=== PATIENT | female | born 1965 | race Two or more races ===

== ENCOUNTER 2023-04-14 09:59 | Outpatient (CLI) | payer OTHER | END 2023-04-14 10:22 | disposition home or self-care (01) | LOC: SONOGRAMA 09:59 | DX: M65.4 Radial styloid tenosynovitis [de Quervain] (principal) ==

== ENCOUNTER 2024-10-09 11:18 | Emergency (ER) | payer OTHER ==
[~2024-10-09] VITALS: Ht 154.9 cm; Wt 109.8 kg
[2024-10-09] MEDS ORDERED: METFORMIN HCL500 M4 PO (11:51)
[2024-10-09] MEDS ORDERED: LOSARTAN POTASS25 MG PO (11:51)
[2024-10-09] MEDS ORDERED: MEPERIDINE HCL/PF 50 MG/ML VIAL IM ONE (12:00)
[2024-10-09 12:54] LABS: HEMATOCRIT 38.1 % (36.0-45.00); HEMOGLOBIN 12.6 g/dL (12.0-15.00); MEAN CELL VOLUME 79.9 fL (80.00-100.00); MEAN CORPUSCULAR HEMOGLOBIN 26.5 pg (27.00-32.0); MEAN CORPUSCULAR HGB CONC 33.1 g/dl (32.0-36.0); PLATELET COUNT 357 K/uL (150-450); RED BLOOD COUNT 4.76 M/uL (4.00-6.00)
[2024-10-09 13:10] LABS: INR 1.06; PARTIAL THROMBOPLASTIN TIME 26.4 SECONDS (22.0-34.0); PROTHROMBIN TIME 11.5 SECONDS (9.0-11.5)
[2024-10-09 13:18] LABS: ALBUMIN 2.8 gm/dL (3.4-5.0); BILIRUBIN TOTAL 0.54 mg/dL (0.3-1.2); CALCIUM 9.3 mg/dL (8.5-10.1); CREATININE SERUM 1.01 mg/dL (0.55-1.02); GFR 56.3; GLOBULINA 4.4 G/DL (2.4-3.5); POTASSIUM 3.28 mEq/L (3.5-5.1); TOTAL PROTEIN 7.2 gm/dL (6.4-8.2)
[2024-10-09 14:07] LABS: PH,URINE 5.5 (5.0-8.0); URINE APPEARANCE Cloudy; URINE BILIRRUBIN Negative (NEGATIVE); URINE BLOOD Small; URINE COLOR Yellow; URINE KETONE Trace (NEGATIVE); URINE LEUKOCYTE Negative; URINE NITRATE Positive
[2024-10-09 14:11] LABS: URINE CAST 2.06 uL (0.0-1.40); URINE RBC 3.5 uL (0.0-20.8); URINE WBC 60.6 uL (0.0-23.2)
[2024-10-09 15:40] LABS: URINE GLUCOSE 100 MG/DL (NEGATIVE)
[2024-10-09 15:41] LABS: URINE BACTERIA > 9821.5 uL (0.0-1933); URINE EPITHELIAL CELLS > 201.7 uL (0.0-38.8); URINE PROTEIN 300 (NEGATIVE)
[2024-10-09] MEDS ORDERED: PEPCID AC20 MG PO (15:44)
[2024-10-09] MEDS ORDERED: BACTRIM DS TAB1 EACH PO (15:44)
[2024-10-09] MEDS ORDERED: NEURONTIN300 MG PO (15:44)
[2024-10-09] MEDS ORDERED: TAMS0.4C PO (15:44)
== END 2024-10-09 16:14 | disposition home or self-care (01) ==
LOC: ER 11:20
PROVIDERS: General Practice
DX: R10.2 Pelvic and perineal pain (principal); I10 Essential (primary) hypertension; E11.9 Type 2 diabetes mellitus without complications; Z79.84 Long term (current) use of oral hypoglycemic drugs

== ENCOUNTER 2024-10-14 15:43 | Inpatient (IN) | payer OTHER ==
[~2024-10-14] VITALS: Ht 152.4 cm; Wt 109.8 kg
[~2024-10-14 15:43] MED LIST: BACTRIM DS TAB1 EACH PO; LOSARTAN POTASS25 MG PO; METFORMIN HCL500 M4 PO; NEURONTIN300 MG PO; PEPCID AC20 MG PO; TAMS0.4C PO
[2024-10-14] MEDS ORDERED: SODIUM CHLORIDE 0.45 % 1,000 ML IV SCH (16:45)
[2024-10-14] MEDS ORDERED: LABETALOL HCL 200 MG/40 ML VIAL IV ONE (16:45)
[2024-10-14] MEDS ORDERED: METHYLPREDNISOLONE SOD SUCC 125 MG VIAL IV ONE (16:45)
[2024-10-14] MEDS ORDERED: LEVALBUTEROL HCL 1.25 MG/3 ML SOLUTION IH SCH (17:00)
[2024-10-14] MEDS ORDERED: LABETALOL HCL 100 MG/20 ML ML ONE (17:24)
[2024-10-14] MEDS ORDERED: METHYLPREDNISOLONE SOD SUCC 125 MG VIAL ONE (17:25)
[2024-10-14 17:57] LABS: HEMATOCRIT 40.8 % (36.0-45.00); HEMOGLOBIN 13.8 g/dL (12.0-15.00); MEAN CELL VOLUME 79.6 fL (80.00-100.00); MEAN CORPUSCULAR HGB CONC 33.9 g/dl (32.0-36.0); PLATELET COUNT 373 K/uL (150-450); RED BLOOD COUNT 5.12 M/uL (4.00-6.00); RED CELL DISTRIBUTION WIDTH 13.9 % (11.5-14.5)
[2024-10-14 18:09] LABS: URINE APPEARANCE Error; URINE BACTERIA 1586.2 uL (0.0-1933); URINE BILIRRUBIN Negative (NEGATIVE); URINE BLOOD Negative; URINE CAST 3.38 uL (0.0-1.40); URINE COLOR Dark Yellow; URINE EPITHELIAL CELLS 107.5 uL (0.0-38.8); URINE GLUCOSE Negative (NEGATIVE); URINE KETONE Trace (NEGATIVE); URINE LEUKOCYTE Negative; URINE NITRATE Negative; URINE RBC 4.7 uL (0.0-20.8); URINE WBC 19.6 uL (0.0-23.2)
[2024-10-14 18:11] LABS: URINE PROTEIN 300 (NEGATIVE)
[2024-10-14 18:25] LABS: ALBUMIN 3.3 gm/dL (3.4-5.0); BILIRUBIN TOTAL 0.43 mg/dL (0.3-1.2); CREATININE SERUM 1.21 mg/dL (0.55-1.02); GFR 45.7; GLOBULINA 4.1 G/DL (2.4-3.5); POTASSIUM 3.77 mEq/L (3.5-5.1); TOTAL PROTEIN 7.4 gm/dL (6.4-8.2)
[2024-10-14] MEDS ORDERED: TICAGRELOR 90 MG TABLET PO ONE (18:45)
[2024-10-14] MEDS ORDERED: NITROGLYCERIN IN 5 % DEXTROSE 250 ML IV SCH (18:45)
[2024-10-14] MEDS ORDERED: NITROGLYCERIN IN 5 % DEXTROSE 50 MG/250 ML BOTTLE IV ONE (18:57)
[2024-10-14] MEDS ORDERED: LEVALBUTEROL HCL 0.63 MG/3 ML SOLUTION IH ONE (19:37)
[2024-10-14] MEDS ORDERED: FUROsemide 20 MG/2 ML VIAL ONE (19:38)
[2024-10-14 19:44] LABS: ABG PH 7.458 (7.35-7.45); ABG PO2 68.8 mmHg (80-100); ABG pCO2 40.5 mmHg (35-45); BASE EXCESS 3.9 mmol/l; SaO2 94.7 %; Tco2 29.3 mmol/l
[2024-10-14 19:58] LABS: allen test SATISFACTORY; puncture site RADIAL RIGHT
[2024-10-14 19:59] LABS: o2 21 %
[2024-10-14] MEDS ORDERED: ACETAMINOPHEN 500 MG GEL..CAP PO ONE (20:01)
[2024-10-14] MEDS ORDERED: FUROsemide 20 MG/2 ML VIAL IV ONE (20:15)
[2024-10-14 20:25] VITALS: BP 190/90
[2024-10-14] MEDS ORDERED: CLEVIDIPINE BUTYRATE 50 MG/100 ML VIAL IV SCH (21:15)
[2024-10-14] MEDS ORDERED: FUROsemide 20 MG/2 ML VIAL IV SCH (22:06)
[2024-10-14] MEDS ORDERED: ATORVASTATIN CALCIUM 40 MG TABLET PO SCH (22:07)
[2024-10-14] MEDS ORDERED: ENOXAPARIN SODIUM 40 MG/0.4 ML SYRINGE SUBCUTANEO SCH (22:07)
[2024-10-14] MEDS ORDERED: 0.9 % SODIUM CHLORIDE 1,000 ML IV SCH (22:15)
[2024-10-14] MEDS ORDERED: DEXTROSE 50 % IN WATER 0.5 G/ML DISP.SYRIN IV PRN (22:15)
[2024-10-14] MEDS ORDERED: INSULIN LISPRO 1,000 UNIT/10 ML UNITS SUBCUTANEO PRN (22:15)
[2024-10-14] MEDS ORDERED: MORPHINE SULFATE 2 MG/ML CARTRIDGE IV PRN (22:15)
[2024-10-14] MEDS ORDERED: ENOXAPARIN SODIUM 40 MG/0.4 ML SYRINGE SUBCUTANEO ONE (22:34)
[2024-10-14 23:15] VITALS: BP 142/63; O2SAT 99
[2024-10-14 23:35] VITALS: BP 157/71; O2SAT 98
[2024-10-14 23:45] LABS: CHOL HDL RATIO 4.6 (0-5.0)
[2024-10-15] VITALS (13 sets, daily range): BP systolic 134–165; BP diastolic 59–76; O2SAT 96–100
[2024-10-15] MEDS ORDERED: LEVALBUTEROL HCL 0.63 MG/3 ML SOLUTION IH ONE ×2 (01:03→05:03)
[2024-10-15] MEDS ORDERED: FUROsemide 20 MG/2 ML VIAL ONE ×2 (09:16→20:09)
[2024-10-15] MEDS ORDERED: ENOXAPARIN SODIUM 80 MG/0.8 ML SYRINGE SUBCUTANEO ONE (09:17)
[2024-10-15] MEDS ORDERED: LEVALBUTEROL HCL 1.25 MG/3 ML SOLUTION IH ONE ×2 (09:43→13:48)
[2024-10-15] MEDS ORDERED: LOSARTAN POTASSIUM 100 MG TABLET PO SCH (10:40)
[2024-10-15] MEDS ORDERED: METOPROLOL TARTRATE 25 MG TABLET PO SCH (10:41)
[2024-10-15] MEDS ORDERED: INSULIN LISPRO 1,000 UNIT/10 ML UNITS SUBCUTANEO ONE (13:23)
[2024-10-15] MEDS ORDERED: ASPIRIN 81 MG TABLET.EC PO SCH (13:35)
[2024-10-15] MEDS ORDERED: INSULIN LISPRO 1,000 UNIT/10 ML UNITS SUBCUTANEO SCH (16:00)
[2024-10-15] MEDS ORDERED: TICAGRELOR 90 MG TABLET PO SCH (17:00)
[2024-10-15] MEDS ORDERED: TICAGRELOR 90 MG TABLET PO ONE (18:19)
[2024-10-15] MEDS ORDERED: METOPROLOL TARTRATE 25 MG TABLET PO ONE (18:19)
[2024-10-15] MEDS ORDERED: INSULIN GLARGINE,HUM.REC.ANLOG 1,000 UNITS/10 ML UNITS SUBCUTANEO ONE (20:09)
[2024-10-15] MEDS ORDERED: ENOXAPARIN SODIUM 100 MG/ML SYRINGE SUBCUTANEO SCH (21:00)
[2024-10-15] MEDS ORDERED: INSULIN GLARGINE,HUM.REC.ANLOG 1,000 UNITS/10 ML UNITS SUBCUTANEO SCH (21:00)
[2024-10-16] VITALS (10 sets, daily range): BP systolic 171–197; BP diastolic 87–102; O2SAT 97–100
[2024-10-16 05:40] LABS: HEMATOCRIT 38.3 % (36.0-45.00); HEMOGLOBIN 12.5 g/dL (12.0-15.00); MEAN CELL VOLUME 80.4 fL (80.00-100.00); MEAN CORPUSCULAR HEMOGLOBIN 26.2 pg (27.00-32.0); MEAN CORPUSCULAR HGB CONC 32.5 g/dl (32.0-36.0); PLATELET COUNT 390 K/uL (150-450); RED BLOOD COUNT 4.76 M/uL (4.00-6.00); RED CELL DISTRIBUTION WIDTH 13.6 % (11.5-14.5)
[2024-10-16 05:47] LABS: ALBUMIN 2.8 gm/dL (3.4-5.0); BILIRUBIN TOTAL 0.36 mg/dL (0.3-1.2); CALCIUM 9.1 mg/dL (8.5-10.1); CREATININE SERUM 1.71 mg/dL (0.55-1.02); GFR 30.66; GLOBULINA 3.4 G/DL (2.4-3.5); POTASSIUM 3.23 mEq/L (3.5-5.1); TOTAL PROTEIN 6.2 gm/dL (6.4-8.2)
[2024-10-16] MEDS ORDERED: hydrALAZINE HCL 25 MG TABLET PO SCH (13:00)
[2024-10-16] MEDS ORDERED: CARVEDILOL 25 MG TABLET PO SCH (17:00)
[2024-10-17] VITALS (9 sets, daily range): BP systolic 187–202; BP diastolic 87–109; O2SAT 97–100
[2024-10-17] MEDS ORDERED: hydrALAZINE HCL 20 MG VIAL IV PRN (07:45)
[2024-10-17] MEDS ORDERED: hydrALAZINE HCL 50 MG TABLET PO SCH (09:00)
[2024-10-17] MEDS ORDERED: DOXAZOSIN MESYLATE 2 MG TABLET PO SCH (09:00)
[2024-10-17 13:42] LABS: CREATININE SERUM 0.9 mg/dL (0.55-1.02); GFR 64.31; POTASSIUM 3.76 mEq/L (3.5-5.1)
[2024-10-17] MEDS ORDERED: ENALAPRILAT DIHYDRATE 2.5 MG/2 ML VIAL IV PRN (21:15)
[2024-10-17] MEDS ORDERED: ENALAPRILAT DIHYDRATE 1.25 MG/ML VIAL IV ONE (21:27)
[2024-10-18] VITALS (9 sets, daily range): BP systolic 142–180; BP diastolic 80–84; O2SAT 95–100
[2024-10-18] MEDS ORDERED: ENALAPRILAT DIHYDRATE 1.25 MG/ML VIAL IV ONE (06:11)
[2024-10-18] MEDS ORDERED: LOSARTAN POTASSIUM 100 MG TABLET PO SCH (09:00)
[2024-10-18] MEDS ORDERED: ENOXAPARIN SODIUM 40 MG/0.4 ML SYRINGE SUBCUTANEO SCH (09:00)
[2024-10-18] MEDS ORDERED: NIFEDIPINE 30 MG TAB.SA.OSM PO NR (13:00)
[2024-10-19] VITALS (7 sets, daily range): BP systolic 154–157; BP diastolic 70–86; O2SAT 95–100
[2024-10-19] MEDS ORDERED: NIFEDIPINE 30 MG TAB.SA.OSM PO SCH (09:00)
[2024-10-19] MEDS ORDERED: SODIUM CHLORIDE FOR INHALATION 1 VIAL.NEB IH SCH (17:00)
[2024-10-20] VITALS (9 sets, daily range): BP systolic 116–178; BP diastolic 67–98; O2SAT 95–98
[2024-10-20] MEDS ORDERED: ACETAMINOPHEN 500 MG GEL..CAP PO PRN (12:45)
[2024-10-20 15:19] LABS: HEMATOCRIT 35.8 % (36.0-45.00); HEMOGLOBIN 11.9 g/dL (12.0-15.00); MEAN CELL VOLUME 78.7 fL (80.00-100.00); MEAN CORPUSCULAR HEMOGLOBIN 26.1 pg (27.00-32.0); MEAN CORPUSCULAR HGB CONC 33.2 g/dl (32.0-36.0); PLATELET COUNT 355 K/uL (150-450); RED BLOOD COUNT 4.54 M/uL (4.00-6.00); RED CELL DISTRIBUTION WIDTH 14.1 % (11.5-14.5)
[2024-10-20 15:43] LABS: ALBUMIN 2.9 gm/dL (3.4-5.0); ALKALINE PHOSPHATASE 148 U/L (50-136); ALT/SGPT 42 U/L (12-78); ANION GAP 7 (10.0-20.0); AST/SGOT 27 U/L (15-37); BLOOD UREA NITROGEN 26 mg/dL (7-18); BUN CREA RATIO 21 (7.0-25.0); CALCIUM 9.3 mg/dL (8.5-10.1); CARBON DIOXIDE 27 mEq/L (21-32); CHLORIDE 107 mmol/L (98-107); CREATININE SERUM 1.24 mg/dL (0.55-1.02); GFR 44.43; GLOBULINA 3.4 G/DL (2.4-3.5); GLUCOSE FASTING 101 mg/dL (65-100); OSMOLALITY SERUM 279 MOSM/KG (275-295); POTASSIUM 4.18 mEq/L (3.5-5.1); SODIUM 137 mmol/L (136-145); TOTAL PROTEIN 6.3 gm/dL (6.4-8.2)
[2024-10-20 15:50] LABS: C-REACTIVE PROTEIN < 0.29 MG/DL (0.00-0.29)
[2024-10-20] MEDS ORDERED: NIFEDIPINE 30 MG TAB.SA.OSM PO SCH (17:00)
[2024-10-21] VITALS: BP 145/81; O2SAT 96
[2024-10-21 01:17] VITALS: O2SAT 94
[2024-10-21 06:03] VITALS: O2SAT 96
[2024-10-21 09:06] VITALS: O2SAT 90
[2024-10-21 09:10] VITALS: BP 171/86
== END 2024-10-21 09:59 | disposition home or self-care (01) | DRG 282 ==
LOC: ER 15:45 → SEC-K 22:16 → MEDI 22:16
PROVIDERS: General Practice; Student in an Organized Health Care Education/Training Program; ADMIT Internal Medicine; ATTEND Internal Medicine
PROC: BW25ZZZ Computerized Tomography (CT Scan) of Chest, Abdomen and Pelvis (ICD-10-PCS; principal; 2024-10-14)
PROC: B24BYZZ Ultrasonography of Heart with Aorta using Other Contrast (ICD-10-PCS; 2024-10-14)
PROC: C21G1ZZ Planar Nuclear Medicine Imaging of Myocardium using Technetium 99m (Tc-99m) (ICD-10-PCS; 2024-10-17)
DX: I16.9 Hypertensive crisis, unspecified (principal); I21.4 Non-ST elevation (NSTEMI) myocardial infarction

== ENCOUNTER 2024-11-09 19:44 | Inpatient (IN) | payer OTHER ==
[~2024-11-09] VITALS: Ht 154.9 cm; Wt 98.9 kg
--- NOTE | 2024-11-09 20:17 | NUR ---
PTE ALERTA Y ORIENTADA X3, SE BONI S/V. PTE REFIERE QUE DESDE HOY PRESENTA MAREOS Y DEBILIDAD. SE REALIZA EKG Y SE PRESENTA A DR. STINSON QUIEN INDICA QUE SE UBIQUE A PTE EN FT
[2024-11-09] MEDS ORDERED: MECLIZINE HCL 25 MG TABLET PO STA (20:37)
--- NOTE | 2024-11-09 20:46 | NUR ---
SE ORIENTA PTE SOBRE TX MEDICO, REFIERE ENTENDER SE MILAN MUESTRA DE LAB Y SE ADMINISTRA MED MORGAN ORDEN MEDICA
[2024-11-09 21:20] LABS: HEMATOCRIT 39.4 % (36.0-45.00); HEMOGLOBIN 12.8 g/dL (12.0-15.00); MEAN CELL VOLUME 79.9 fL (80.00-100.00); MEAN CORPUSCULAR HGB CONC 32.6 g/dl (32.0-36.0); PLATELET COUNT 321 K/uL (150-450); RED BLOOD COUNT 4.93 M/uL (4.00-6.00); RED CELL DISTRIBUTION WIDTH 14.4 % (11.5-14.5)
[2024-11-09 21:37] LABS: ALBUMIN 3.5 gm/dL (3.4-5.0); BILIRUBIN TOTAL 0.38 mg/dL (0.3-1.2); CALCIUM 9.3 mg/dL (8.5-10.1); CREATININE SERUM 1.47 mg/dL (0.55-1.02); GFR 36.51; GLOBULINA 4.1 G/DL (2.4-3.5); POTASSIUM 4.61 mEq/L (3.5-5.1); TOTAL PROTEIN 7.6 gm/dL (6.4-8.2)
[2024-11-09 21:50] LABS: URINE APPEARANCE Cloudy; URINE BILIRRUBIN Negative (NEGATIVE); URINE BLOOD Negative; URINE COLOR Dark Yellow; URINE GLUCOSE Negative (NEGATIVE); URINE KETONE Trace (NEGATIVE); URINE LEUKOCYTE Small; URINE NITRATE Negative
[2024-11-09 21:54] LABS: URINE CAST 6.48 uL (0.0-1.40); URINE EPITHELIAL CELLS 199.4 uL (0.0-38.8); URINE RBC 2.9 uL (0.0-20.8); URINE WBC 54.9 uL (0.0-23.2)
--- NOTE | 2024-11-09 22:10 | NUR ---
SE UBICA A PTE EN UNIDA DE CHEST PAIN EN CAMA #17, SE CANALIZA X2 EN BRAZO NITZA Y SE CONECTO A MONITOR CARDIACO Y OXIMETRIA DE PULSO CONTINUA
[2024-11-09] MEDS ORDERED: ATORVASTATIN CALCIUM 40 MG TABLET PO SCH (22:20)
[2024-11-09] MEDS ORDERED: METOPROLOL SUCCINATE 25 MG TAB.SR.24H PO SCH (22:20)
[2024-11-09 22:21] LABS: URINE BACTERIA > 9821.5 uL (0.0-1933); URINE PROTEIN 100 (NEGATIVE)
[2024-11-09] MEDS ORDERED: ENOXAPARIN SODIUM 100 MG/ML SYRINGE SUBCUTANEO SCH (22:21)
[2024-11-09] MEDS ORDERED: INSULIN LISPRO 1,000 UNIT/10 ML UNITS SUBCUTANEO PRN (22:30)
[2024-11-09] MEDS ORDERED: CEFTRIAXONE SODIUM 2,000 MG in 0.9 % SODIUM CHLORIDE 100 ML IV SCH (22:30)
[2024-11-09] MEDS ORDERED: TICAGRELOR 90 MG TABLET PO ONE (22:30)
[2024-11-09] MEDS ORDERED: DEXTROSE 50 % IN WATER 0.5 G/ML DISP.SYRIN IV PRN (22:30)
[2024-11-09] MEDS ORDERED: ASPIRIN 325 MG TABLET PO ONE (22:30)
[2024-11-09] MEDS ORDERED: NITROGLYCERIN IN 5 % DEXTROSE 250 ML IV SCH (22:30)
[2024-11-09] MEDS ORDERED: ACETAMINOPHEN 500 MG GEL..CAP PO PRN (22:30)
[2024-11-09] MEDS ORDERED: 0.9 % SODIUM CHLORIDE 1,000 ML IV SCH (22:30)
[2024-11-10] VITALS (16 sets, daily range): BP systolic 117–148; BP diastolic 62–87; O2SAT 96–100
[2024-11-10 00:42] LABS: INR 0.97; PROTHROMBIN TIME 10.6 SECONDS (9.0-11.5)
[2024-11-10 00:48] LABS: PARTIAL THROMBOPLASTIN TIME 26.9 SECONDS (22.0-34.0)
[2024-11-10 00:49] LABS: ABG PH 7.436 (7.35-7.45); ABG PO2 89.9 mmHg (80-100); BASE EXCESS -1.4 mmol/l; SaO2 97.2 %; Tco2 23.1 mmol/l
[2024-11-10 01:35] LABS: ABG pCO2 33.5 mmHg (35-45); allen test SATISFACTORY; o2 21 %; puncture site RADIAL LEFT
[2024-11-10 08:10] LABS: CHOL HDL RATIO 3.6 (0-5.0)
[2024-11-10] MEDS ORDERED: ASPIRIN 81 MG TAB.CHEW PO SCH (09:00)
[2024-11-10] MEDS ORDERED: FAMOTIDINE/PF 20 MG in 0.9 % SODIUM CHLORIDE 8 ML IV PUSH SCH (09:00)
[2024-11-10 09:02] LABS: TSH 0.005 uIU/mL (0.358-3.74)
[2024-11-10] MEDS ORDERED: TICAGRELOR 90 MG TABLET PO SCH (10:00)
[2024-11-11] VITALS (18 sets, daily range): BP systolic 121–177; BP diastolic 64–97; O2SAT 90–100
[2024-11-11 06:56] LABS: HEMATOCRIT 33.5 % (36.0-45.00); HEMOGLOBIN 11.1 g/dL (12.0-15.00); MEAN CELL VOLUME 78.7 fL (80.00-100.00); PLATELET COUNT 281 K/uL (150-450); RED BLOOD COUNT 4.25 M/uL (4.00-6.00); RED CELL DISTRIBUTION WIDTH 14.8 % (11.5-14.5)
[2024-11-11 07:47] LABS: CALCIUM 8.8 mg/dL (8.5-10.1); CREATININE SERUM 0.97 mg/dL (0.55-1.02); GFR 58.98; POTASSIUM 4.62 mEq/L (3.5-5.1)
[2024-11-11] MEDS ORDERED: ENALAPRILAT DIHYDRATE 2.5 MG/2 ML VIAL IV ONE (20:15)
[2024-11-11] MEDS ORDERED: FAMOTIDINE/PF 20 MG in 0.9 % SODIUM CHLORIDE 8 ML IV PUSH SCH (21:00)
[2024-11-12 02:34] VITALS: BP 188/96; O2SAT 100
[2024-11-12] MEDS ORDERED: ENOXAPARIN SODIUM 40 MG/0.4 ML SYRINGE SUBCUTANEO SCH (09:00)
[2024-11-12] MEDS ORDERED: LOSARTAN POTASSIUM 50 MG TABLET PO SCH (09:00)
[2024-11-12 09:59] VITALS: BP 188/87; O2SAT 98
[2024-11-12 18:43] VITALS: BP 180/110
[2024-11-12] MEDS ORDERED: AMLODIPINE BESYLATE 10 MG TABLET PO SCH (19:30)
[2024-11-12] MEDS ORDERED: ENALAPRILAT DIHYDRATE 1.25 MG/ML VIAL IV ONE (19:30)
[2024-11-13 02:30] VITALS: BP 109/97; BP 209/97; O2SAT 97
[2024-11-13 03:00] VITALS: BP 180/90
[2024-11-13 08:10] LABS: HEMATOCRIT 34.7 % (36.0-45.00); HEMOGLOBIN 11.5 g/dL (12.0-15.00); MEAN CELL VOLUME 78.9 fL (80.00-100.00); MEAN CORPUSCULAR HEMOGLOBIN 26.1 pg (27.00-32.0); MEAN CORPUSCULAR HGB CONC 33.1 g/dl (32.0-36.0); PLATELET COUNT 271 K/uL (150-450); RED BLOOD COUNT 4.41 M/uL (4.00-6.00); RED CELL DISTRIBUTION WIDTH 14.6 % (11.5-14.5)
[2024-11-13] MEDS ORDERED: hydrALAZINE HCL 20 MG VIAL IV PRN (08:15)
[2024-11-13 08:21] LABS: CALCIUM 9.2 mg/dL (8.5-10.1); CREATININE SERUM 1.05 mg/dL (0.55-1.02); GFR 53.83; POTASSIUM 4.32 mEq/L (3.5-5.1)
[2024-11-13] MEDS ORDERED: HYDROCHLOROTHIAZIDE 25 MG TABLET PO SCH (09:00)
[2024-11-13] MEDS ORDERED: METOPROLOL SUCCINATE 50 MG TAB.SR.24H PO SCH (09:00)
[2024-11-13] MEDS ORDERED: NIFEDIPINE 60 MG TAB.SA.OSM PO SCH (09:00)
[2024-11-13] MEDS ORDERED: LOSARTAN POTASSIUM 100 MG TABLET PO SCH (09:00)
[2024-11-13 09:59] VITALS: BP 104/90; O2SAT 98
[2024-11-13 15:31] LABS: PH,URINE 5.5 (5.0-8.0); URINE APPEARANCE Clear; URINE BILIRRUBIN Negative (NEGATIVE); URINE BLOOD NHT; URINE COLOR Yellow; URINE GLUCOSE Negative (NEGATIVE); URINE KETONE Negative (NEGATIVE); URINE LEUKOCYTE Negative; URINE NITRATE Negative; URINE PROTEIN 30 (NEGATIVE); URINE UROBILINOGEN 0.2 E.U./dl
[2024-11-13 15:32] LABS: URINE BACTERIA 17.1 uL (0.0-1933); URINE CAST 1.47 uL (0.0-1.40); URINE EPITHELIAL CELLS 3.9 uL (0.0-38.8); URINE RBC 9.5 uL (0.0-20.8); URINE WBC 7.4 uL (0.0-23.2)
[2024-11-13 20:08] VITALS: BP 155/87; O2SAT 98
[2024-11-14 01:39] VITALS: BP 159/77
[2024-11-14 09:34] VITALS: BP 190/82
[2024-11-14 12:15] VITALS: BP 168/84
[2024-11-14] MEDS ORDERED: hydrALAZINE HCL 25 MG TABLET PO SCH (13:00)
[2024-11-14] MEDS ORDERED: METOPROLOL SUCCINATE 50 MG TAB.SR.24H PO SCH (17:00)
[2024-11-14 17:41] VITALS: BP 160/85; O2SAT 96
[2024-11-14] MEDS ORDERED: FAMOtidine 20 MG TABLET PO SCH (21:00)
[2024-11-14 22:21] VITALS: BP 144/69; O2SAT 96
[2024-11-15 01:34] VITALS: BP 129/78
[2024-11-15 08:31] VITALS: BP 138/81; O2SAT 94
[2024-11-15 18:20] VITALS: BP 147/80; O2SAT 97
[2024-11-15 22:24] VITALS: BP 150/75; O2SAT 96
[2024-11-16 01:17] VITALS: BP 147/84
[2024-11-16 08:13] VITALS: BP 156/80; O2SAT 99
== END 2024-11-16 12:33 | disposition home or self-care (01) | DRG 281 ==
LOC: ER 19:46 → ICU-2 22:27 → ICU 22:27 → MEDJ 11-11 20:19
PROVIDERS: General Practice; Internal Medicine Infectious Disease; Student in an Organized Health Care Education/Training Program; ADMIT Internal Medicine; ATTEND Internal Medicine
PROC: 4A12X4Z Monitoring of Cardiac Electrical Activity, External Approach (ICD-10-PCS; principal; 2024-11-09)
PROC: B246ZZZ Ultrasonography of Right and Left Heart (ICD-10-PCS; 2024-11-09)
PROC: B020ZZZ Computerized Tomography (CT Scan) of Brain (ICD-10-PCS; 2024-11-09)
PROC: BT43ZZZ Ultrasonography of Bilateral Kidneys (ICD-10-PCS; 2024-11-09)
DX: I21.4 Non-ST elevation (NSTEMI) myocardial infarction (principal); N17.9 Acute kidney failure, unspecified; N39.0 Urinary tract infection, site not specified; I24.9 Acute ischemic heart disease, unspecified; I13.10 Hypertensive heart and chronic kidney disease without heart failure, with stage 1 through stage 4 chronic kidney disease, or unspecified chronic kidney disease; E11.9 Type 2 diabetes mellitus without complications; N18.9 Chronic kidney disease, unspecified; E78.5 Hyperlipidemia, unspecified; B96.1 Klebsiella pneumoniae [K. pneumoniae] as the cause of diseases classified elsewhere; Z79.84 Long term (current) use of oral hypoglycemic drugs